=== PATIENT | female | born 1990 | race Caucasian/White ===

== ENCOUNTER 2017-02-26 17:26 | Emergency (ER) | payer SELFPAY ==
[~2017-02-26] VITALS: Ht 165.1 cm; Wt 92.1 kg
[2017-02-26 18:06] VITALS: BP_SYST 134
[2017-02-26 18:32] LABS: BILIRUBIN,URINE NEGATIVE (NEGATIVE); BLOOD, URINE NEGATIVE (NEGATIVE); CLARITY/URINE SL HAZY (CLEAR); COLOR,URINE YELLOW (YELLOW); GLUCOSE,URINE NEGATIVE (NEGATIVE); KETONES,URINE TRACE (NEGATIVE); LEUKOCYTE ESTERASE ,URINE NEGATIVE (NEGATIVE); NITRITE, URINE NEGATIVE (NEGATIVE); PH,URINE 6.5 (5.0-8.0); PROTEIN URINE NEGATIVE (NEGATIVE); UROBILINOGEN,URINE 0.2 (0.2-1.0)
--- NOTE | 2017-02-26 19:42 | NUR ---
Patient to ER bed 5 to gown for evaluation. Side rails up. Report given to ERMELINDA Nur.
--- NOTE | 2017-02-26 19:45 | NUR ---
Patient AAOx4, ambulatory with steady gait. Patient states having generalized body aches for approximately "several days" prior to ER visit. Patient states pain is currently 7/10 pain scale. Patient states feeling anxious due to mother being in the hospital. Patient denies SOB, denies chest pain at this time. Patient denies any other complaints.
--- NOTE | 2017-02-26 20:00 | NUR ---
ER Dr. Mchugh at bedside examining patient.
[2017-02-26] MEDS ORDERED: LORazepam 2 MG/ML VIAL (FOR ER USE) IVP ONE (20:30)
[2017-02-26] MEDS ORDERED: NACL 0.9% 1,000 ML IV ONE (20:30)
[2017-02-26 20:41] LABS: EOSINOPHILS % (AUTO) 0.4 % (0.0-4.0); HEMOGLOBIN 13.4 g/dL (12.0-16.0); LYMPHOCYTES # (AUTO) 2.6 K/uL (1.0-5.5); LYMPHOCYTES % (AUTO) 24.5 % (20.5-51.5); MEAN CORPUSCULAR HEMOGLOBIN 28 pg (27-31); MEAN CORPUSCULAR HGB CONC 33 % (32-36); MEAN CORPUSCULAR VOLUME 83 fL (79.0-98.0); MONOCYTES # (AUTO) 0.7 K/uL (0.0-1.0); MONOCYTES % (AUTO) 6.2 % (1.7-9.3); PLATELET COUNT (AUTO) 438 K/uL (130-430); RED BLOOD CELL COUNT(AUTO) 4.84 MIL/uL (4.2-6.2); RED CELL DISTRIBUTION WIDTH 11.8 % (9.0-15.0); WHITE BLOOD COUNT (AUTO) 10.6 K/uL (4.8-10.8)
[2017-02-26 20:42] LABS: NEUTROPHILS % (AUTO) 68.9 % (40.0-70.0)
[2017-02-26 20:43] LABS: NEUTROPHILS # (AUTO) 7.3 K/uL (1.8-7.7)
[2017-02-26 20:51] LABS: CALCIUM 9.1 mg/dL (8.4-11.0); CREATININE 0.63 mg/dL (0.55-1.30)
[2017-02-26 20:56] LABS: ALBUMIN 3.9 g/dL (3.4-4.8); TOTAL BILIRUBIN 0.3 mg/dL (0.0-1.0)
--- NOTE | 2017-02-26 21:24 | NUR ---
Patient's allergies verified at bedside prior to medication administration. Correct patient, medication, dose, route, time, and documentation verified at bedside prior to administration.
--- NOTE | 2017-02-26 21:39 | NUR ---
No adverse effects to medications noted.
--- NOTE | 2017-02-26 21:45 | NUR ---
Patient stable, no signs of distress noted. Vital signs within therapeutic range.
--- NOTE | 2017-02-26 22:30 | NUR ---
Patient given written and verbal discharge instructions and verbalizes understanding. ER MD discussed with patient the results and treatment provided. Patient in stable condition. ID arm band removed. IV catheter removed intact and dressing applied, no active bleeding. Rx of xanax given. Patient educated on pain management and to follow up with PMD. Pain Scale 0/10. Opportunity for questions provided and answered.
[2017-02-26 22:31] VITALS: BP_SYST 125
== END 2017-02-26 22:30 | disposition home or self-care (01) ==
LOC: SED 17:26
DX: F41.9 Anxiety disorder, unspecified (principal); R03.0 Elevated blood-pressure reading, without diagnosis of hypertension; R10.84 Generalized abdominal pain; R19.7 Diarrhea, unspecified; R50.9 Fever, unspecified; J02.9 Acute pharyngitis, unspecified; R42 Dizziness and giddiness
CPT/HCPCS: 36415; 80053; 81003; 81025; 85025; 96361; 96374; 99284; J2060; J7030